=== PATIENT | male | born 1960 | race African-American/Black ===

== ENCOUNTER 2019-01-19 13:51 | Outpatient (CLI) | payer OTHER ==
[2019-01-19 15:15] LABS: CHOLESTEROL 139 mg/dL (<200); HDL CHOLESTEROL 36 mg/dL (>45); LDL CHOLESTEROL 91 mg/dL (<100); TRIGLYCERIDES 194 mg/dL (30-150)
== END 2019-01-19 20:00 | disposition home or self-care (01) ==
LOC: SLB 13:51
PROVIDERS: ATTEND Psychiatry & Neurology Psychiatry
DX: Z00.00 Encounter for general adult medical examination without abnormal findings (principal)
CPT/HCPCS: 36415; 80061; 83036; 87081